=== PATIENT | male | born 1985 ===

== ENCOUNTER 2017-06-16 08:51 | Emergency (ER) | payer OTHER ==
[2017-06-16 09:18] VITALS: RESP 18
--- NOTE | 2017-06-16 09:46 | C.PDOC ---
History Of Present Illness 31 y/o male presents to the ED complaining of left infrascapular pain for the past 2 days. Denies associated trauma or fall. No cough or URI symptoms. Pain worsens with movement. Patient is not taking any medications for pain relief. He is right hand dominant. Time Seen by Provider: 06/16/17 09:35 Chief Complaint (Nursing): Upper Extremity Problem/Injury History Per: Patient History/Exam Limitations: no limitations Onset/Duration Of Symptoms: Days Current Symptoms Are (Timing): Still Present Past Medical History Reviewed: Historical Data, Nursing Documentation, Vital Signs Vital Signs: Last Vital Signs Temp 98.5 F 06/16/17 09:58 Pulse 68 06/16/17 09:58 Resp 18 06/16/17 09:58 BP 110/68 06/16/17 09:58 Pulse Ox 98 06/16/17 11:17 - Medical History PMH: No Chronic Diseases Surgical History: No Surg Hx Family History: States: Unknown Family Hx - Social History Hx Tobacco Use: Yes Hx Alcohol Use: Yes Hx Substance Use: Yes (Marijuana) - Immunization History Hx Tetanus Toxoid Vaccination: No Hx Influenza Vaccination: No Hx Pneumococcal Vaccination: No Review Of Systems Except As Marked, All Systems Reviewed And Found Negative. Constitutional: Negative for: Fever ENT: Negative for: Nose Congestion Cardiovascular: Negative for: Chest Pain Respiratory: Negative for: Cough, Shortness of Breath Musculoskeletal: Positive for: Back Pain Physical Exam - Physical Exam Appears: Well, Non-toxic, No Acute Distress Skin: Warm, Dry, No Rash Head: Atraumatic, Normacephalic Eye(s): bilateral: Normal Inspection, PERRL, EOMI Oral Mucosa: Moist Neck: Normal ROM, No Midline Cervical Tenderness, Supple Chest: Symmetrical Cardiovascular: Rhythm Regular, No Murmur Respiratory: Normal Breath Sounds, No Accessory Muscle Use Gastrointestinal/Abdominal: Soft, No Tenderness, No Distention Back: No Vertebral Tenderness, Paraspinal Tenderness (to left infrascapular region) Extremity: Bilateral: Atraumatic, Normal ROM Neurological/Psych: Oriented x3, Normal Speech ED Course And Treatment O2 Sat by Pulse Oximetry: 98 (RA) Pulse Ox Interpretation: Normal Medical Decision Making Medical Decision Making: Impression: Muscle strain Plan: --Flexeril 5 mg PO --Motrin 600 mg PO Patient reports improvement after medications given. Stable for d/c home. Provided prescriptions for Flexeril and Naprosyn. Advised patient to follow up with PMD in 1-2 days Disposition Counseled Patient/Family Regarding: Diagnosis, Need For Followup, Rx Given - Disposition Disposition: HOME/ ROUTINE Disposition Time: 09:46 Condition: STABLE Additional Instructions: follow up with your doctor in 2 days call to make an appointment take medications as needed for pain return to ER if symptoms worsens or progress Prescriptions: Cyclobenzaprine [Cyclobenzaprine HCl] 10 mg PO TID PRN #12 tab PRN Reason: Muscle Spasm Naproxen [Naprosyn] 500 mg PO BID PRN #16 tab PRN Reason: Pain, Moderate (4-7) Instructions: Muscle Strain (DC) Forms: General Discharge Instructions, [facility] (Martiniquais), Work Excuse - Clinical Impression Clinical Impression: Muscle strain - Scribe Statement The provider has reviewed the documentation as recorded by the Scribe (Jeannine Santoyo) Provider Attestation: All medical record entries made by the Scribe were at my direction and personally dictated by me. I have reviewed the chart and agree that the record accurately reflects my personal performance of the history, physical exam, medical decision making, and the department course for this patient. I have also personally directed, reviewed, and agree with the discharge instructions and disposition.
[2017-06-16 10:00] VITALS: BP 110/68; PULSE 68; TEMP 98.5
[2017-06-16 11:17] VITALS: O2SAT 98
== END 2017-06-16 09:58 | disposition home or self-care (01) ==
LOC: C.ER 08:51
DX: S46.812A Strain of other muscles, fascia and tendons at shoulder and upper arm level, left arm, initial encounter (principal); X58.XXXA Exposure to other specified factors, initial encounter; Y92.9 Unspecified place or not applicable